=== PATIENT | male | born 1955 | race Caucasian/White ===

== ENCOUNTER → 2022-04-12 | Outpatient (CLI) | payer BC, MEDICARE ==
[~2022-04-12] MED LIST: BEBTELOVIMAB (EUA) 175 MG/2 ML VIAL IV NR; SODIUM CHLORIDE 0.9% 500 ML 500 ML in EMPTY BAG 1 BAG IV PRN
[2022-04-12 12:48] VITALS: RESP 16; TEMP 98.4
[2022-04-12 13:57] VITALS: BP 117/71; PULSE 77
== END ==
LOC: PROCWHC3 12:08
PROVIDERS: ATTEND Physician Assistant
DX: U07.1 COVID-19 (principal); Z88.1 Allergy status to other antibiotic agents
CPT/HCPCS: Q0222; M0222

== ENCOUNTER → 2022-05-03 | Outpatient (CLI) | payer MEDICARE ==
--- NOTE | 2022-05-09 15:20 | US ---
EXAMINATION TYPE: US arterial LE single level DATE OF EXAM: 05/03/2022 9:50 AM CLINICAL HISTORY: I73.9 PERIPHERAL VASCULAR DISEASE. bilateral ankle edema. redness/discoloration sergio ateral lower legs. intermittent bilateral knee pain. coldness bilateral feet intermittently Doppler Waveforms: Right: Multiphasic Left: Multiphasic Pulse Volume Recording: Symmetric amplitudes Pressure Gradients: No significant gradients Ankle-Brachial Indices: Right: 1.23 Left: 1.12 Toe Brachial Indices: Right: 0.69 Left: 0.78 IMPRESSION: Normal ankle-brachial indices
== END | disposition home or self-care (01) ==
LOC: RADUSWWP 09:19
PROVIDERS: ATTEND Family Medicine
DX: I73.9 Peripheral vascular disease, unspecified (principal)
CPT/HCPCS: 93922

== ENCOUNTER → 2023-04-07 | Outpatient (CLI) | payer MEDICARE ==
--- NOTE | 2023-04-07 09:04 | CT ---
EXAMINATION TYPE: CT chest wo con DATE OF EXAM: 04/07/2023 COMPARISON: None HISTORY: exposed to chemicals at work x40 years CT DLP: 553.[address] of the chest was performed with lung and mediastinal window settings submitted. The la ck of contrast limits evaluation of the vascular, mediastinal and parenchymal structures including th e upper abdomen. LUNGS: The lungs are clear and free of infiltrate. No atelectasis. No pulmonary nodule or mass is de tected. No pleural effusion. No CT evidence of interstitial lung disease. MEDIASTINUM/RODOLFO: Thoracic aorta is of normal caliber with limited evaluation given lack of contrast . The heart is not enlarged. No evidence for mediastinal mass. No lymph nodes greater than 1cm. UPPER ABDOMEN: No significant abnormality is seen. OTHER: No significant other abnormality. IMPRESSION: 1. No significant abnormality seen.
== END | disposition home or self-care (01) ==
LOC: RADCTMAIN 08:20
PROVIDERS: ATTEND Family Medicine
DX: Z77.098 Contact with and (suspected) exposure to other hazardous, chiefly nonmedicinal, chemicals (principal)
CPT/HCPCS: 71250